=== PATIENT | male | born 1965 | race Two or more races ===

== ENCOUNTER 2020-04-25 10:27 | Inpatient (IN) | payer OTHER ==
[~2020-04-25] VITALS: Ht 180.3 cm; Wt 112.0 kg
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
[2020-04-25 15:44] VITALS: BP 134/85
[2020-04-25] MEDS ORDERED: LISI2.5T2 PO (15:55)
[2020-04-25] MEDS ORDERED: ATOR20TA PO (15:55)
[2020-04-25] MEDS ORDERED: GLIP10TA11 PO (15:55)
[2020-04-25] MEDS ORDERED: EMPA1TAB21 PO (15:55)
[2020-04-25] MEDS ORDERED: BLOOD SUGAR DIAGNOSTIC 1 EACH STRIP IN ONE (16:00)
[2020-04-25] MEDS ORDERED: MAGNESIUM HYDROXIDE 30 ML UDC PO PRN (16:30)
[2020-04-25] MEDS ORDERED: ACETAMINOPHEN ES 500 MG TABLET PO PRN (16:30)
[2020-04-25] MEDS ORDERED: MAG HYDROX/AL HYDROX/SIMETH 30 ML UDC PO PRN (16:30)
[2020-04-25] MEDS ORDERED: IBUPROFEN 200 MG TABLET PO PRN (16:30)
[2020-04-25] MEDS: LORAZEPAM 1 MG TABLET FOR AGITATION PO PRN (16:52)
--- NOTE | 2020-04-25 16:52 | NUR ---
RN NOTE- PT W ANXIETY. REQUESTING PRN. ATIVAN 1 MG GIVEN
--- NOTE | 2020-04-25 16:55 | NUR ---
RN NOTE-0 DR ROMERO ORDERED PT TO TAKE ORAL HYPOGLYCEMICS. ADMINISTERED AT THIS TIME. GLIPIZIDE 10 MG, EMPAGLIFOZIN/METFORMIN 12.5 MG/ 1000 MG
--- NOTE | 2020-04-25 17:01 | NUR ---
Dr. Rivera made aware that BS is 323, per pt. he didn't take the diabetic meds today and he ordered to start now.
--- NOTE | 2020-04-25 17:30 | NUR ---
GPS RN OPENING NOTE: RECEIVED PT. RESTING IN ROOM, A/O X4, ANXIOUS AT TIMES, COOPERATIVE, CALM, AMBULATORY STEADY GAIT, ABLE TO MAKE NEEDS KNOWN. DENIES SI/HI AT THIS TIME. WILL CONTINUE TO MONITOR FOR SAFETY AND BEHAVIOR Addendum: 04/25/20 at 2246 by OMID TARIQ RN WRONG TIME ENTRY @ 1938
[2020-04-25 20:07] VITALS: BP_SYST 138; BP_SYST 149; BP_DIAS 64; BP_DIAS 80
[2020-04-25] MEDS: ZOLPIDEM TARTRATE 10 MG TABLET PO PRN (23:08)
--- NOTE | 2020-04-25 23:10 | NUR ---
GPS RN NOTE: INSOMNIA PT. C/O UNABLE TO SLEEP. ADMINISTERED AMBIEN 10 MG PO PRN ORDERED. WILL CONTINUE TO MONITOR.
[2020-04-26] MEDS: BLOOD SUGAR DIAGNOSTIC 1 EACH STRIP IN SCH ×2 (07:40→16:36)
[2020-04-26 08:34] VITALS: BP 123/76
[2020-04-26] MEDS: LISINOPRIL 2.5 MG PO SCH (08:50)
[2020-04-26] MEDS: METFORMIN PO SCH (08:51)
[2020-04-26] MEDS: EMPAGLIFLOZIN PO SCH (08:51)
[2020-04-26] MEDS: GLIPIZIDE 10 MG PO SCH (08:51)
[2020-04-26] MEDS ORDERED: EMPAGLIFLOZIN PO SCH (09:00)
[2020-04-26] MEDS ORDERED: METFORMIN PO SCH (09:00)
[2020-04-26] MEDS ORDERED: GLIPIZIDE 10 MG PO SCH (09:00)
[2020-04-26] MEDS ORDERED: IBUPROFEN 600 MG TABLET PO PRN (09:00)
[2020-04-26] MEDS ORDERED: ATORVASTATIN 20 MG PO SCH (09:00)
[2020-04-26] MEDS: ATORVASTATIN 20 MG PO SCH (09:01)
--- NOTE | 2020-04-26 09:08 | NUR ---
RN Notes: Received pt. awake in bed, responsive to staffs, no distress and no agitation noted. BS monitored, ate 50% for breakfast, compliant on meds. Pt. went for smoking, needs attended and will continue to monitor for safety.
[2020-04-26 16:00] VITALS: BP 155/82
--- NOTE | 2020-04-26 18:13 | NUR ---
Reported to Dr. Rivera about the blood sugar. Before breakfast 155 and before dinner 169 and left a message.
--- NOTE | 2020-04-26 19:43 | NUR ---
GPS RN OPENING NOTE: RECEIVED PT. RESTING IN ROOM AND USING HIS CELL PHONE, A/O X4, NO S/S OF ACUTE DISTRESS, NO PAIN, COOPERATIVE, CALM, AMBULATORY STEADY GAIT, ABLE TO MAKE NEEDS KNOWN. DENIES SI/HI AT THIS TIME. WILL CONTINUE TO MONITOR FOR SAFETY AND BEHAVIOR.
[2020-04-26 20:32] VITALS: BP 124/78
[2020-04-27] MEDS: LORAZEPAM 1 MG TABLET FOR AGITATION PO PRN (05:38)
--- NOTE | 2020-04-27 05:39 | NUR ---
GPS RN NOTE: PT. C/O OF BEING ANXIOUS. ADMINISTERED ATIVAN 1 MG PO PRN ORDERED. WILL CONTINUE TO MONITOR.
[2020-04-27] MEDS: BLOOD SUGAR DIAGNOSTIC 1 EACH STRIP IN SCH ×2 (07:29→16:36)
[2020-04-27 08:00] VITALS: BP 118/86
[2020-04-27] MEDS: GLIPIZIDE 10 MG PO SCH (08:03)
[2020-04-27] MEDS: LISINOPRIL 2.5 MG PO SCH (08:03)
[2020-04-27] MEDS: ATORVASTATIN 20 MG PO SCH (08:04)
[2020-04-27] MEDS: METFORMIN PO SCH (08:04)
[2020-04-27] MEDS: EMPAGLIFLOZIN PO SCH (08:04)
[2020-04-27 16:00] VITALS: BP 154/82
[2020-04-27 20:00] VITALS: BP 101/69
[2020-04-27] MEDS: ZOLPIDEM TARTRATE 10 MG TABLET PO PRN (20:22)
--- NOTE | 2020-04-27 21:31 | NUR ---
GPS/RN OPENING NOTE Patient awake in bed, A/O x4 calm and cooperative, on his phone in bed. No acute distress or SOB noted. Patient denies pain, N/V/D. Patient is ambulatory with steady gait. Denies SI/HI. Will continue to monitor for safety and behavior.
[2020-04-28] MEDS: BLOOD SUGAR DIAGNOSTIC 1 EACH STRIP IN SCH ×2 (07:43→16:54)
[2020-04-28 08:00] VITALS: BP 129/94
[2020-04-28] MEDS: GLIPIZIDE 10 MG PO SCH (08:31)
[2020-04-28] MEDS: EMPAGLIFLOZIN PO SCH (08:31)
[2020-04-28] MEDS: METFORMIN PO SCH (08:31)
[2020-04-28] MEDS: LISINOPRIL 2.5 MG PO SCH (08:31)
[2020-04-28] MEDS: ATORVASTATIN 20 MG PO SCH (08:32)
--- NOTE | 2020-04-28 09:36 | NUR ---
GPS/RN Open Notes Patient resting, A/O X4, calm and cooperative with no signs of distress and no SOB. Ambulatory with steady gait. Able to make needs known. Patient denies SI/HI. Will continue to monitor for safety.
[2020-04-28 16:00] VITALS: BP 90/46
[2020-04-28 20:03] VITALS: BP 129/94
--- NOTE | 2020-04-28 20:11 | NUR ---
GPS RN NOTES: OPENING RECEIVED PT. IN BED AWAKE., A/O X4, ANXIOUS AT TIMES, COOPERATIVE, CALM, AMBULATORY STEADY GAIT, FRIENDLY, RESERVED, AND NEEDY AT TIMES. PER DAY SHIFT, PT HEARING VOICES AT TIME. PT CURRENTLY HAS NO SI OR HI AT THIS TIME. ABLE TO MAKE NEEDS KNOWN.TIME. WILL CONTINUE TO MONITOR FOR SAFETY AND BEHAVIOR Q15 MIN. ENCOURAGE PT TO EXRESS THOUGHTS AND FEELING TO STAFF.
[2020-04-28] MEDS ORDERED: OLANZAPINE 10 MG TABLET PO SCH (22:00)
[2020-04-28 22:17] VITALS: BP 124/78
[2020-04-28] MEDS: ZOLPIDEM TARTRATE 10 MG TABLET PO PRN (22:20)
--- NOTE | 2020-04-28 22:23 | NUR ---
GPS RN NOTE: INSOMNIA PT. C/O UNABLE TO SLEEP. VITALS CHECKED WNL. ADMINISTERED AMBIEN 10 MG PO PRN ORDERED. WILL CONTINUE TO MONITOR.
[2020-04-29] MEDS: BLOOD SUGAR DIAGNOSTIC 1 EACH STRIP IN SCH ×2 (06:30→17:09)
[2020-04-29 08:00] VITALS: BP 104/62
[2020-04-29] MEDS: LISINOPRIL 2.5 MG PO SCH (08:54)
[2020-04-29] MEDS: ATORVASTATIN 20 MG PO SCH (08:54)
[2020-04-29] MEDS: METFORMIN PO SCH (08:54)
[2020-04-29] MEDS: GLIPIZIDE 10 MG PO SCH (08:54)
[2020-04-29] MEDS: EMPAGLIFLOZIN PO SCH (08:54)
--- NOTE | 2020-04-29 09:00 | NUR ---
RN NOTE:Patient alert ,verbally responsive ,poor insight ,poor judgment easily irritable and anxious ,stay in his room ,preoccupied with his own thoughts ,no plan for self care.
[2020-04-29 16:00] VITALS: BP 127/87
[2020-04-29 20:02] VITALS: BP 131/61
[2020-04-29] MEDS ORDERED: OLANZAPINE 10 MG TABLET PO SCH (22:00)
[2020-04-29] MEDS: ZOLPIDEM TARTRATE 10 MG TABLET PO PRN (22:06)
--- NOTE | 2020-04-29 22:07 | NUR ---
rn gps notes patient requested for sleep medication, sukhiien prn offered, patient agreed and given as ordered, vs wnl , will continue to monitor for effectiveness.
[2020-04-30] MEDS: BLOOD SUGAR DIAGNOSTIC 1 EACH STRIP IN SCH ×2 (07:22→17:44)
[2020-04-30 08:00] VITALS: BP 104/56
[2020-04-30] MEDS: ATORVASTATIN 20 MG PO SCH (08:27)
[2020-04-30] MEDS: GLIPIZIDE 10 MG PO SCH (08:27)
[2020-04-30] MEDS: EMPAGLIFLOZIN PO SCH (08:27)
[2020-04-30] MEDS: METFORMIN PO SCH (08:27)
[2020-04-30] MEDS: LISINOPRIL 2.5 MG PO SCH (08:28)
--- NOTE | 2020-04-30 10:44 | NUR ---
[facility] OPENING NOTED: PT. IN BED AWAKE., A/O X4, ANXIOUS AT TIMES, COOPERATIVE, CALM, AMBULATORY STEADY GAIT,FRIENDLY, PT DENIES SI OR HI AT THIS TIME, FEELING DEPRESSED AND SAD. PT ADMIT TO HAVE AH DENIES VH ABLE TO MAKE NEEDS KNOWN.TIME. WILL CONTINUE TO MONITOR FOR SAFETY AND BEHAVIOR Q15 MIN. ENCOURAGE PT TO EXPRESS THOUGHTS AND FEELING TO STAFF.
[2020-04-30 16:00] VITALS: BP 127/78
[2020-04-30 18:40] VITALS: BP 127/78
[2020-04-30 20:01] VITALS: BP 120/54
--- NOTE | 2020-04-30 20:05 | NUR ---
GPS RN OPENING NOTE: RECEIVED PT. IN BED AWAKE., A/O X4, ANXIOUS AT TIMES, COOPERATIVE, CALM, AMBULATORY STEADY GAIT,FRIENDLY, PT DENIES SI OR HI AT THIS TIME, PT ADMIT TO HAVE AH DENIES VH ABLE TO MAKE NEEDS KNOWN.TIME. WILL CONTINUE TO MONITOR FOR SAFETY AND BEHAVIOR Q15 MIN.
[2020-04-30] MEDS ORDERED: OLANZAPINE 10 MG TABLET PO SCH (22:00)
[2020-04-30] MEDS: ZOLPIDEM TARTRATE 10 MG TABLET PO PRN (22:54)
--- NOTE | 2020-04-30 22:56 | NUR ---
GPS RN NOTE: INSOMNIA PT. C/O UNABLE TO SLEEP. ADMINISTERED AMBIEN 10 MG PO PRN ORDERED. WILL CONTINUE TO MONITOR.
[2020-05-01] MEDS: BLOOD SUGAR DIAGNOSTIC 1 EACH STRIP IN SCH (07:39)
--- NOTE | 2020-05-01 07:40 | NUR ---
GPS/RN-NOTES RECEIVED PATIENT SLEEPING WITH BREATHING EVEN AND NONLABORED EASILY AROUSED,NO ACUTE DISTRESS NOTED.
[2020-05-01] MEDS: METFORMIN PO SCH (08:27)
[2020-05-01] MEDS: GLIPIZIDE 10 MG PO SCH (08:27)
[2020-05-01] MEDS: ATORVASTATIN 20 MG PO SCH (08:27)
[2020-05-01] MEDS: EMPAGLIFLOZIN PO SCH (08:27)
[2020-05-01 08:30] VITALS: BP 101/54
[2020-05-01] MEDS: LISINOPRIL 2.5 MG PO SCH (08:30)
[2020-05-01 08:47] VITALS: BP 101/58
--- NOTE | 2020-05-01 08:54 | NUR ---
Dr. Rivera gave an order to D/C pt. to home and to follow up with psych and medical doctors.
--- NOTE | 2020-05-01 09:49 | NUR ---
GPS/RN-NOTES PATIENT WAS DISCHARGE HOME TODAY HAD A DISCHARGE ORDER FROM DR. ROMERO .PATIENT LEFT THE UNIT ALERT ORIENTED X4 AMBULATORY WITH STEADY GAIT. PATIENT DID NOT VERBALIZE SI/HI,DENIES VISUAL AUDITORY HALLUCINATIONS AT THE TIME OF DISCHARGE. ALL BELONGINGS WAS GIVEN BACK TO THE PATIENT.PATIENT WAS GRADUATE NURSE BY FERNANDA ( DR. ROMERO OFFICE STAFF) IN THE UNIT.OFFERED FLU VACCINE BUT REFUSED. MASK WAS GIVEN TO THE PATIENT.
[2020-05-02] MEDS ORDERED: LORAZEPAM 1 MG TABLET FOR AGITATION PO PRN (12:00)
[2020-05-02] MEDS ORDERED: INVESTIGATIONAL MED RGH-MD-24 1 CAP PO SCH (17:00)
== END 2020-05-01 09:45 | disposition home or self-care (01) | DRG 951 ==
LOC: GPS 12:18
PROVIDERS: ADMIT Psychiatry & Neurology Psychiatry; ATTEND Psychiatry & Neurology Psychiatry
DX: Z00.6 Encounter for examination for normal comparison and control in clinical research program (principal); F20.0 Paranoid schizophrenia; F17.210 Nicotine dependence, cigarettes, uncomplicated; E11.9 Type 2 diabetes mellitus without complications; Z79.84 Long term (current) use of oral hypoglycemic drugs
CPT/HCPCS: 82962-TC

== ENCOUNTER 2023-02-01 16:09 | Inpatient (IN) | payer MEDICARE, MEDICAID ==
[~2023-02-01] VITALS: Ht 180.3 cm; Wt 102.1 kg
[~2023-02-01 16:09] MED LIST: ATOR20TA PO; EMPA1TAB21 PO; GLIP10TA11 PO; LISI2.5T2 PO
[2023-02-01] MEDS ORDERED: IV NS 0.9% 1,000 ML BAG IV ONE ×2 (17:00→18:30)
[2023-02-01 17:46] LABS: BASOPHILS % (AUTO) 0.3 % (0.0-2.0); EOSINOPHILS % (AUTO) 0.2 % (0.0-6.0); HEMATOCRIT 44 % (39-51); HEMOGLOBIN 14.4 g/dL (13.5-17.5); LYMPHOCYTES # (AUTO) 0.7 K/uL (0.8-4.8); LYMPHOCYTES % (AUTO) 4.6 % (20.0-44.0); MEAN CORPUSCULAR HEMOGLOBIN 30 PG (26.0-33.0); MEAN CORPUSCULAR HGB CONC 33 g/dl (31.0-36.0); MEAN CORPUSCULAR VOLUME 91 fL (80-96); MONOCYTES # (AUTO) 0.7 K/uL (0.1-1.30); MONOCYTES % (AUTO) 4.9 % (2.0-12.0); NEUTROPHILS # (AUTO) 13.4 K/uL (1.8-8.9); PLATELET COUNT (AUTO) 249 K/uL (150-450); RED BLOOD CELL COUNT(AUTO) 4.84 MIL/uL (4.5-6.0); RED CELL DISTRIBUTION WIDTH 13.5 % (11.5-15.0); WHITE BLOOD COUNT (AUTO) 14.9 K/uL (4.3-11.0)
[2023-02-01 18:02] LABS: CARBON DIOXIDE 19 mmol/L (21-32); CHLORIDE 104 mmol/L (98-107); CREATININE 1.7 mg/dL (0.6-1.3); GLUCOSE 279 mg/dL (74-106); POTASSIUM 4.3 mmol/L (3.5-5.1); SODIUM SERUM 137 mmol/L (136-145); UREA NITROGEN, BLOOD 14 mg/dL (7-18)
[2023-02-01 18:15] LABS: ALANINE AMINOTRANSFERASE 22 U/L (12-78); ALBUMIN 3.1 g/dL (3.4-5.0); ALKALINE PHOSPHATASE 72 U/L (46-116); ASPARTATE AMINOTRANSFERASE 20 U/L (15-37); BILIRUBIN,DIRECT 0.1 mg/dL (0.0-0.2); BILIRUBIN,TOTAL 0.6 mg/dL (0.2-1.0); NT-PRO BNP 48 pg/mL (0-125); TOTAL PROTEIN, SERUM 6.5 g/dL (6.4-8.2)
[2023-02-01] MEDS ORDERED: TRAZ150T75 PO (20:23)
[2023-02-01 20:30] VITALS: BP 96/58; TEMP 98.5; O2SAT 95
[2023-02-01 20:59] VITALS: BP 96/58; TEMP 98.5; O2SAT 95
[2023-02-01] MEDS ORDERED: MAGNESIUM HYDROXIDE 30 ML UDC PO PRN (21:00)
[2023-02-01] MEDS ORDERED: ACETAMINOPHEN 325 MG TABLET PO PRN (21:00)
[2023-02-01] MEDS ORDERED: ZOLPIDEM TARTRATE 5 MG TABLET PO PRN (21:00)
[2023-02-01] MEDS ORDERED: ONDANSETRON HCL/PF 4 MG/2 ML VIAL IVP PRN (21:00)
[2023-02-01] MEDS ORDERED: Z GUARD REMEDY 4 OZ OINT TP PRN (21:00)
[2023-02-01] MEDS: ATORVASTATIN 10 MG TABLET PO SCH (21:20)
[2023-02-01] MEDS ORDERED: DEXTROSE 50%-WATER 50 ML DISP.SYRIN IV PRN (21:30)
[2023-02-01] MEDS: IV NS 0.9% 1,000 ML IV PRN (21:46)
[2023-02-01] MEDS: INSULIN REGULAR, HUMAN 100 UNIT/ML 3 ML VIAL SQ PRN (22:06)
[2023-02-01] MEDS: BLOOD SUGAR DIAGNOSTIC 1 EACH STRIP IN SCH (22:06)
[2023-02-02] VITALS (7 sets, daily range): BP systolic 86–103; BP diastolic 55–70; TEMP 97.7–98.1; O2SAT 96–100
[2023-02-02] MEDS ORDERED: ENOXAPARIN SODIUM 100 MG/ML DISP.SYRIN SQ ONE (01:30)
[2023-02-02] MEDS ORDERED: ASPIRIN 325 MG TABLET PO ONE (01:30)
[2023-02-02] MEDS: BLOOD SUGAR DIAGNOSTIC 1 EACH STRIP IN SCH ×4 (06:34→22:00)
[2023-02-02] MEDS: INSULIN REGULAR, HUMAN 100 UNIT/ML 3 ML VIAL SQ PRN ×4 (06:35→23:01)
[2023-02-02 06:48] LABS: BASOPHILS # (AUTO) 0.1 K/uL (0.0-0.2); BASOPHILS % (AUTO) 0.7 % (0.0-2.0); EOSINOPHILS # (AUTO) 0.2 K/uL (0.0-0.7); EOSINOPHILS % (AUTO) 2.4 % (0.0-6.0); HEMATOCRIT 39 % (39-51); HEMOGLOBIN 13.1 g/dL (13.5-17.5); LYMPHOCYTES # (AUTO) 1.9 K/uL (0.8-4.8); LYMPHOCYTES % (AUTO) 25.9 % (20.0-44.0); MEAN CORPUSCULAR HEMOGLOBIN 31 PG (26.0-33.0); MEAN CORPUSCULAR HGB CONC 34 g/dl (31.0-36.0); MEAN CORPUSCULAR VOLUME 90 fL (80-96); MONOCYTES # (AUTO) 0.8 K/uL (0.1-1.30); MONOCYTES % (AUTO) 10.2 % (2.0-12.0); NEUTROPHILS # (AUTO) 4.5 K/uL (1.8-8.9); NEUTROPHILS % (AUTO) 60.8 % (43.0-81.0); PLATELET COUNT (AUTO) 198 K/uL (150-450); RED BLOOD CELL COUNT(AUTO) 4.28 MIL/uL (4.5-6.0); RED CELL DISTRIBUTION WIDTH 13.5 % (11.5-15.0); WHITE BLOOD COUNT (AUTO) 7.4 K/uL (4.3-11.0)
[2023-02-02 07:05] LABS: CALCIUM, SERUM 9.1 mg/dL (8.5-10.1); CREATININE 1.1 mg/dL (0.6-1.3); MAGNESIUM 1.7 mg/dL (1.8-2.4); PHOSPHORUS 3.9 mg/dL (2.5-4.9); POTASSIUM 3.7 mmol/L (3.5-5.1)
[2023-02-02] MEDS: ASPIRIN 81 MG TAB.CHEW PO SCH (08:28)
[2023-02-02] MEDS: ENOXAPARIN SODIUM 100 MG/ML DISP.SYRIN SQ SCH ×2 (08:29→22:51)
[2023-02-02] MEDS ORDERED: OLAN15TA3 PO (08:45)
[2023-02-02] MEDS ORDERED: GABA300C PO (08:45)
[2023-02-02] MEDS: OLANZAPINE 10 MG TABLET PO SCH ×2 (09:43→16:54)
[2023-02-02] MEDS: NEOMY SULF/BACITRAC ZN/POLY 15 GM TUBE TP SCH (10:05)
[2023-02-02] MEDS ORDERED: MAGNESIUM OXIDE 400 MG TABLET PO ONE (10:30)
[2023-02-02] MEDS: IV NS 0.9% 1,000 ML IV PRN (13:44)
[2023-02-02] MEDS: TRAZODONE 50 MG TABLET PO SCH (22:50)
[2023-02-02] MEDS: ATORVASTATIN 10 MG TABLET PO SCH (22:50)
[2023-02-03] VITALS: BP 101/56; TEMP 98.2; O2SAT 99
[2023-02-03 04:00] VITALS: BP_SYST 101; BP_SYST 103; BP_DIAS 56; BP_DIAS 57; TEMP 97.9; O2SAT 100; O2SAT 99
[2023-02-03] MEDS: INSULIN REGULAR, HUMAN 100 UNIT/ML 3 ML VIAL SQ PRN ×3 (06:42→17:02)
[2023-02-03] MEDS: BLOOD SUGAR DIAGNOSTIC 1 EACH STRIP IN SCH ×4 (06:45→22:29)
[2023-02-03 07:00] VITALS: BP 106/75; TEMP 98.2; O2SAT 94
[2023-02-03 07:59] LABS: CALCIUM, SERUM 8.6 mg/dL (8.5-10.1); CREATININE 0.7 mg/dL (0.6-1.3); MAGNESIUM 1.7 mg/dL (1.8-2.4)
[2023-02-03] MEDS: OLANZAPINE 10 MG TABLET PO SCH ×2 (09:31→17:00)
[2023-02-03] MEDS: ASPIRIN 81 MG TAB.CHEW PO SCH (09:31)
[2023-02-03] MEDS: ENOXAPARIN SODIUM 100 MG/ML DISP.SYRIN SQ SCH ×2 (09:32→20:53)
[2023-02-03] MEDS: NEOMY SULF/BACITRAC ZN/POLY 15 GM TUBE TP SCH (10:03)
[2023-02-03] MEDS: IV NS 0.9% 1,000 ML IV PRN (10:27)
[2023-02-03] MEDS ORDERED: MAGNESIUM OXIDE 400 MG TABLET PO ONE (11:00)
[2023-02-03 16:00] VITALS: BP 88/49; TEMP 98.2; O2SAT 94
[2023-02-03] MEDS: ATORVASTATIN 10 MG TABLET PO SCH (21:02)
[2023-02-03] MEDS: TRAZODONE 50 MG TABLET PO SCH (21:02)
[2023-02-03 21:19] VITALS: BP 102/58; TEMP 98.3; O2SAT 97
[2023-02-04 04:13] VITALS: BP_SYST 89; TEMP 98; O2SAT 95
[2023-02-04] MEDS: IV NS 0.9% 1,000 ML IV PRN ×2 (05:06→23:33)
[2023-02-04 07:00] VITALS: BP 100/55; TEMP 97.8; O2SAT 98
[2023-02-04] MEDS: BLOOD SUGAR DIAGNOSTIC 1 EACH STRIP IN SCH ×4 (07:40→21:54)
[2023-02-04] MEDS: ASPIRIN 81 MG TAB.CHEW PO SCH (09:00)
[2023-02-04] MEDS: ENOXAPARIN SODIUM 100 MG/ML DISP.SYRIN SQ SCH (09:00)
[2023-02-04] MEDS: OLANZAPINE 10 MG TABLET PO SCH ×2 (09:58→16:31)
[2023-02-04] MEDS: NEOMY SULF/BACITRAC ZN/POLY 15 GM TUBE TP SCH (09:59)
[2023-02-04] MEDS: INSULIN REGULAR, HUMAN 100 UNIT/ML 3 ML VIAL SQ PRN ×2 (11:24→16:41)
[2023-02-04 12:00] VITALS: BP 125/77; TEMP 97.8; O2SAT 98
[2023-02-04] MEDS ORDERED: IV NS 0.9% 1,000 ML ONE (12:16)
[2023-02-04] MEDS ORDERED: IV SET PRIMARY PUMP SET 1 EA INFUS.SET MC ONE (12:16)
[2023-02-04] MEDS ORDERED: LIDOCAINE HCL/MPF 1% 30 ML VIAL IJ ONE (12:17)
[2023-02-04] MEDS ORDERED: NITROGLYCERIN IN 5 % DEXTROSE 250 ML IV ONE (12:17)
[2023-02-04] MEDS ORDERED: IODIXANOL 150 ML IV ONE (12:17)
[2023-02-04 12:39] LABS: INR 1.08 (0.91-1.10); PROTHROMBIN TIME 11.3 SECS (9.2-11.1)
[2023-02-04] MEDS ORDERED: MIDAZOLAM HCL 2 MG/2ML VIAL ONE (13:20)
[2023-02-04] MEDS ORDERED: FENTANYL PF 100MCG/2ML AMPUL ONE (13:20)
[2023-02-04 16:00] VITALS: BP 115/63; TEMP 97.6; O2SAT 98
[2023-02-04 20:51] VITALS: BP 110/59; TEMP 98.2; O2SAT 97
[2023-02-04] MEDS: ATORVASTATIN 10 MG TABLET PO SCH (21:45)
[2023-02-04] MEDS: TRAZODONE 50 MG TABLET PO SCH (21:45)
[2023-02-05 00:44] VITALS: BP 119/59; TEMP 98; O2SAT 99
[2023-02-05] MEDS: BLOOD SUGAR DIAGNOSTIC 1 EACH STRIP IN SCH ×2 (06:19→11:28)
[2023-02-05 08:00] VITALS: BP 107/75; TEMP 98.5; O2SAT 98
[2023-02-05] MEDS: OLANZAPINE 10 MG TABLET PO SCH (08:52)
[2023-02-05] MEDS: ASPIRIN 81 MG TAB.CHEW PO SCH (08:52)
[2023-02-05] MEDS: NEOMY SULF/BACITRAC ZN/POLY 15 GM TUBE TP SCH (08:56)
[2023-02-05] MEDS ORDERED: ASPI-1169 PO (10:02)
[2023-02-05] MEDS ORDERED: ATOR10TA PO (10:02)
[2023-02-05] MEDS: INSULIN REGULAR, HUMAN 100 UNIT/ML 3 ML VIAL SQ PRN (11:28)
== END 2023-02-05 12:15 | disposition left against medical advice (07) | DRG 192 ==
LOC: ER 16:15 → TELE 20:17
PROVIDERS: ADMIT Nurse Practitioner Acute Care; ATTEND Internal Medicine
PROC: 4A023N7 Measurement of Cardiac Sampling and Pressure, Left Heart, Percutaneous Approach (ICD-10-PCS; principal; 2023-02-04)
PROC: B211YZZ Fluoroscopy of Multiple Coronary Arteries using Other Contrast (ICD-10-PCS; 2023-02-04)
DX: I95.1 Orthostatic hypotension (principal); N17.0 Acute kidney failure with tubular necrosis; I21.4 Non-ST elevation (NSTEMI) myocardial infarction; E44.1 Mild protein-calorie malnutrition; E88.09 Other disorders of plasma-protein metabolism, not elsewhere classified; F25.9 Schizoaffective disorder, unspecified; E11.65 Type 2 diabetes mellitus with hyperglycemia; D72.829 Elevated white blood cell count, unspecified; E86.0 Dehydration; I25.10 Atherosclerotic heart disease of native coronary artery without angina pectoris; I10 Essential (primary) hypertension; I21.A1 Myocardial infarction type 2; Z79.84 Long term (current) use of oral hypoglycemic drugs; Z87.891 Personal history of nicotine dependence; F32.9 Major depressive disorder, single episode, unspecified; Z68.31 Body mass index [BMI] 31.0-31.9, adult
CPT/HCPCS: 36415; 70450-TC; 71045-TC; 80048-TC; 80061-TC; 80076-TC; 82962-TC; 83735-TC; 83880; 84100-TC; 84484-TC; 85025-TC; 85610-TC; 93307-TC; A4223; G0378; G0500; J1644; J1650; J1815; J2250; J3010; J3490; J7030; Q9967

== ENCOUNTER 2023-04-23 14:30 | Emergency (ER) | payer MEDICARE, OTHER ==
[~2023-04-23] VITALS: Ht 180.3 cm; Wt 95.3 kg
[~2023-04-23 14:30] MED LIST changes: +ASPI-1169 PO; +ATOR10TA PO; +GABA300C PO; +OLAN15TA3 PO; +TRAZ150T75 PO
[2023-04-23 16:15] LABS: BASOPHILS % (AUTO) 0.6 % (0.0-2.0); HEMATOCRIT 42 % (39-51); HEMOGLOBIN 13.9 g/dL (13.5-17.5); LYMPHOCYTES # (AUTO) 1.1 K/uL (0.8-4.8); LYMPHOCYTES % (AUTO) 16.5 % (20.0-44.0); MEAN CORPUSCULAR HEMOGLOBIN 30 PG (26.0-33.0); MEAN CORPUSCULAR HGB CONC 34 g/dl (31.0-36.0); MEAN CORPUSCULAR VOLUME 91 fL (80-96); MONOCYTES % (AUTO) 15.4 % (2.0-12.0); NEUTROPHILS # (AUTO) 4.6 K/uL (1.8-8.9); NEUTROPHILS % (AUTO) 67.5 % (43.0-81.0); PLATELET COUNT (AUTO) 230 K/uL (150-450); RED BLOOD CELL COUNT(AUTO) 4.58 MIL/uL (4.5-6.0); RED CELL DISTRIBUTION WIDTH 13.4 % (11.5-15.0); WHITE BLOOD COUNT (AUTO) 6.8 K/uL (4.3-11.0)
[2023-04-23 16:21] LABS: CALCIUM, SERUM 9.5 mg/dL (8.5-10.1); CARBON DIOXIDE 22 mmol/L (21-32); CHLORIDE 100 mmol/L (98-107); CREATININE 1.2 mg/dL (0.6-1.3); GLUCOSE 200 mg/dL (74-106); POTASSIUM 4.2 mmol/L (3.5-5.1); SODIUM SERUM 140 mmol/L (136-145); UREA NITROGEN, BLOOD 18 mg/dL (7-18)
[2023-04-23 16:26] LABS: ACETAMINOPHEN <10 ug/ml (10-30); ALANINE AMINOTRANSFERASE 29 U/L (12-78); ALBUMIN 4.4 g/dL (3.4-5.0); ALCOHOL, BLOOD < 3 mg/dL (0-10); ALKALINE PHOSPHATASE 77 U/L (46-116); ASPARTATE AMINOTRANSFERASE 15 U/L (15-37); BILIRUBIN,DIRECT 0.3 mg/dL (0.0-0.2); SALICYLATE 1.7 mg/dL (2.8-20.0); TOTAL PROTEIN, SERUM 8.6 g/dL (6.4-8.2)
[2023-04-23 16:28] LABS: APPEARANCE,URINE CLEAR (CLEAR); BILIRUBIN,URINE 1+ (NEGATIVE); BLOOD, URINE NEGATIVE Ery/uL (NEGATIVE); COLOR,URINE YELLOW (YELLOW); KETONES,URINE 3+ mg/dL (NEGATIVE); LEUKOCYTE ESTERASE ,URINE NEGATIVE (NEGATIVE); NITRITE, URINE NEGATIVE (NEGATIVE); PH,URINE 5.5 (5.0-8.0); PROTEIN,URINE NEGATIVE (NEGATIVE); UGLUCOSE 3+ mg/dL (NEGATIVE)
[2023-04-23 16:37] LABS: AMPHETAMINE, URINE NEGATIVE (NEGATIVE); BARBITURATE, URINE NEGATIVE (NEGATIVE); BENZODIAZEPINE, URINE NEGATIVE (NEGATIVE); CANNABINOID, URINE NEGATIVE (NEGATIVE); COCCAINE, URINE NEGATIVE (NEGATIVE); OPIATE, URINE NEGATIVE (NEGATIVE); PHENCYCLIDINE SCREEN,URINE NEGATIVE (NEGATIVE)
[2023-04-23 16:39] LABS: ADD URINE CULTURE NO; BACTERIA,URINE Few /HPF (None Seen); RBC,URINE 0-2 /HPF (0-2); SQUAMOUS EPITHELIAL CELL,UR Few /HPF (None Seen); WBC,URINE NONE SEEN /HPF (0-3)
[2023-04-23 16:40] LABS: COARSE GRANULAR CASTS,URINE Few /LPF (None Seen)
[2023-04-23 17:21] LABS: LYMPHOCYTES % (MANUAL) 17 % (16-48); MONOCYTES % (MANUAL) 18 % (0-11.0); NEUTROPHILS % (MANUAL) 65 (42-76); PLATELET ESTIMATE ADEQUATE
[2023-04-23 17:22] LABS: ANISOCYTOSIS 1+
[2023-04-23] MEDS ORDERED: OLANZAPINE 5 MG TABLET PO ONE (18:30)
[2023-04-23] MEDS ORDERED: OLANZAPINE 5 MG TABLET ONE (18:40)
[2023-04-26 08:09] VITALS: BP 127/80; TEMP 98.1; O2SAT 97
== END 2023-04-26 08:10 | disposition home or self-care (01) ==
LOC: ER 14:51
DX: U07.1 COVID-19 (principal); R45.851 Suicidal ideations; R44.0 Auditory hallucinations; I10 Essential (primary) hypertension; E78.5 Hyperlipidemia, unspecified; E11.9 Type 2 diabetes mellitus without complications; Z98.890 Other specified postprocedural states; Z79.899 Other long term (current) drug therapy; Z60.2 Problems related to living alone; Z91.018 Allergy to other foods
CPT/HCPCS: 36415; 80048-TC; 80076-TC; 81001; 85025-TC; C9803; G0480

== ENCOUNTER 2023-06-23 18:01 | Emergency (ER) | payer MEDICARE, OTHER ==
[~2023-06-23] VITALS: Ht 180.3 cm; Wt 97.5 kg
[2023-06-23 21:25] VITALS: TEMP 97.9
[2023-06-23 21:52] LABS: BASOPHILS # (AUTO) 0.1 K/uL (0.0-0.2); BASOPHILS % (AUTO) 0.7 % (0.0-2.0); EOSINOPHILS # (AUTO) 0.1 K/uL (0.0-0.7); EOSINOPHILS % (AUTO) 1.2 % (0.0-6.0); HEMATOCRIT 44 % (39-51); HEMOGLOBIN 14.6 g/dL (13.5-17.5); LYMPHOCYTES # (AUTO) 1.9 K/uL (0.8-4.8); LYMPHOCYTES % (AUTO) 21.6 % (20.0-44.0); MEAN CORPUSCULAR HEMOGLOBIN 30 PG (26.0-33.0); MEAN CORPUSCULAR HGB CONC 33 g/dl (31.0-36.0); MEAN CORPUSCULAR VOLUME 91 fL (80-96); MONOCYTES # (AUTO) 0.8 K/uL (0.1-1.30); MONOCYTES % (AUTO) 9.1 % (2.0-12.0); NEUTROPHILS # (AUTO) 5.9 K/uL (1.8-8.9); NEUTROPHILS % (AUTO) 67.4 % (43.0-81.0); PLATELET COUNT (AUTO) 246 K/uL (150-450); RED BLOOD CELL COUNT(AUTO) 4.84 MIL/uL (4.5-6.0); RED CELL DISTRIBUTION WIDTH 13.5 % (11.5-15.0); WHITE BLOOD COUNT (AUTO) 8.8 K/uL (4.3-11.0)
[2023-06-23 22:00] LABS: CARBON DIOXIDE 27 mmol/L (21-32); CHLORIDE 99 mmol/L (98-107); CREATININE 1.1 mg/dL (0.6-1.3); GLUCOSE 177 mg/dL (74-106); POTASSIUM 4.4 mmol/L (3.5-5.1); SODIUM SERUM 135 mmol/L (136-145); UREA NITROGEN, BLOOD 18 mg/dL (7-18)
[2023-06-23 22:05] LABS: ALANINE AMINOTRANSFERASE 25 U/L (12-78); ALBUMIN 3.9 g/dL (3.4-5.0); ALCOHOL, BLOOD < 3 mg/dL (0-10); ALKALINE PHOSPHATASE 75 U/L (46-116); ASPARTATE AMINOTRANSFERASE 12 U/L (15-37); BILIRUBIN,DIRECT 0.1 mg/dL (0.0-0.2); BILIRUBIN,TOTAL 0.6 mg/dL (0.2-1.0); TOTAL PROTEIN, SERUM 7.6 g/dL (6.4-8.2)
[2023-06-23 22:34] LABS: APPEARANCE,URINE CLEAR (CLEAR); BILIRUBIN,URINE NEGATIVE (NEGATIVE); BLOOD, URINE NEGATIVE Ery/uL (NEGATIVE); COLOR,URINE YELLOW (YELLOW); KETONES,URINE TRACE mg/dL (NEGATIVE); LEUKOCYTE ESTERASE ,URINE NEGATIVE (NEGATIVE); NITRITE, URINE NEGATIVE (NEGATIVE); PROTEIN,URINE NEGATIVE (NEGATIVE); UGLUCOSE 2+ mg/dL (NEGATIVE); UROBILINOGEN,URINE 0.2 EU/dL (0.2)
[2023-06-23 22:37] LABS: ACETAMINOPHEN <10 ug/ml (10-30); SALICYLATE 1.8 mg/dL (2.8-20.0)
[2023-06-23 22:39] LABS: ADD URINE CULTURE NO; BACTERIA,URINE Rare /HPF (None Seen); RBC,URINE 0-2 /HPF (0-2); SQUAMOUS EPITHELIAL CELL,UR Few /HPF (None Seen); WBC,URINE 0-2 /HPF (0-3)
[2023-06-23 22:45] LABS: AMPHETAMINE, URINE NEGATIVE (NEGATIVE); BARBITURATE, URINE NEGATIVE (NEGATIVE); BENZODIAZEPINE, URINE NEGATIVE (NEGATIVE); CANNABINOID, URINE NEGATIVE (NEGATIVE); COCCAINE, URINE NEGATIVE (NEGATIVE); OPIATE, URINE NEGATIVE (NEGATIVE); PHENCYCLIDINE SCREEN,URINE NEGATIVE (NEGATIVE)
[2023-06-23 23:05] VITALS: BP 118/76; O2SAT 100
== END 2023-06-24 02:35 ==
LOC: ER 18:08
DX: R44.0 Auditory hallucinations (principal); I10 Essential (primary) hypertension; E78.5 Hyperlipidemia, unspecified; E11.9 Type 2 diabetes mellitus without complications; Z91.018 Allergy to other foods; Z60.2 Problems related to living alone; Z20.822 Contact with and (suspected) exposure to COVID-19
CPT/HCPCS: 36415; 80048-TC; 80076-TC; 81001; 85025-TC; G0480

== ENCOUNTER 2024-03-23 08:04 | Emergency (ER) | payer MEDICARE, MEDICAID ==
[~2024-03-23] VITALS: Ht 180.3 cm; Wt 99.8 kg
[2024-03-23 08:37] VITALS: TEMP 98.6
[2024-03-23 09:00] LABS: BASOPHILS # (AUTO) 0.1 K/uL (0.0-0.2); BASOPHILS % (AUTO) 1.2 % (0.0-2.0); EOSINOPHILS # (AUTO) 0.1 K/uL (0.0-0.7); EOSINOPHILS % (AUTO) 1.9 % (0.0-6.0); HEMATOCRIT 39 % (39-51); HEMOGLOBIN 13.5 g/dL (13.5-17.5); LYMPHOCYTES # (AUTO) 1.1 K/uL (0.8-4.8); LYMPHOCYTES % (AUTO) 16.2 % (20.0-44.0); MEAN CORPUSCULAR HEMOGLOBIN 31 PG (26.0-33.0); MEAN CORPUSCULAR HGB CONC 34 g/dl (31.0-36.0); MEAN CORPUSCULAR VOLUME 90 fL (80-96); MONOCYTES # (AUTO) 0.7 K/uL (0.1-1.30); MONOCYTES % (AUTO) 10.5 % (2.0-12.0); NEUTROPHILS # (AUTO) 4.9 K/uL (1.8-8.9); NEUTROPHILS % (AUTO) 70.2 % (43.0-81.0); PLATELET COUNT (AUTO) 274 K/uL (150-450); RED BLOOD CELL COUNT(AUTO) 4.37 MIL/uL (4.5-6.0); RED CELL DISTRIBUTION WIDTH 12.9 % (11.5-15.0)
[2024-03-23 09:04] LABS: APPEARANCE,URINE CLEAR (CLEAR); BILIRUBIN,URINE NEGATIVE (NEGATIVE); BLOOD, URINE NEGATIVE Ery/uL (NEGATIVE); COLOR,URINE YELLOW (YELLOW); KETONES,URINE 1+ mg/dL (NEGATIVE); LEUKOCYTE ESTERASE ,URINE NEGATIVE (NEGATIVE); NITRITE, URINE NEGATIVE (NEGATIVE); PH,URINE 5.5 (5.0-8.0); PROTEIN,URINE NEGATIVE (NEGATIVE); UGLUCOSE 3+ mg/dL (NEGATIVE); UROBILINOGEN,URINE 0.2 EU/dL (0.2)
[2024-03-23 09:15] LABS: ADD URINE CULTURE NO; BACTERIA,URINE Rare /HPF (None Seen); RBC,URINE 0-2 /HPF (0-2); SQUAMOUS EPITHELIAL CELL,UR 0-2 /HPF (None Seen); WBC,URINE 0-2 /HPF (0-3)
[2024-03-23 09:17] LABS: AMPHETAMINE, URINE NEGATIVE (NEGATIVE); BARBITURATE, URINE NEGATIVE (NEGATIVE); BENZODIAZEPINE, URINE NEGATIVE (NEGATIVE); CANNABINOID, URINE NEGATIVE (NEGATIVE); COCCAINE, URINE NEGATIVE (NEGATIVE); OPIATE, URINE NEGATIVE (NEGATIVE); PHENCYCLIDINE SCREEN,URINE NEGATIVE (NEGATIVE)
[2024-03-23 09:18] LABS: ALANINE AMINOTRANSFERASE 22 U/L (12-78); ALBUMIN 3.9 g/dL (3.4-5.0); ALKALINE PHOSPHATASE 106 U/L (46-116); ASPARTATE AMINOTRANSFERASE 11 U/L (15-37); BILIRUBIN,DIRECT 0.2 mg/dL (0.0-0.2); BILIRUBIN,TOTAL 0.7 mg/dL (0.2-1.0); CALCIUM, SERUM 9.1 mg/dL (8.5-10.1); CARBON DIOXIDE 27 mmol/L (21-32); CHLORIDE 106 mmol/L (98-107); CREATININE 0.9 mg/dL (0.6-1.3); GLUCOSE 186 mg/dL (74-106); SODIUM SERUM 141 mmol/L (136-145); TOTAL PROTEIN, SERUM 7.6 g/dL (6.4-8.2); UREA NITROGEN, BLOOD 19 mg/dL (7-18)
[2024-03-23 09:19] LABS: ACETAMINOPHEN <10 ug/ml (10-30); ALCOHOL, BLOOD < 3 mg/dL (0-10); SALICYLATE 1.1 mg/dL (2.8-20.0)
[2024-03-23 11:30] VITALS: BP 125/70; O2SAT 98
== END 2024-03-23 11:30 ==
LOC: ER 08:13
DX: R45.851 Suicidal ideations (principal); R44.0 Auditory hallucinations; E11.9 Type 2 diabetes mellitus without complications; E78.5 Hyperlipidemia, unspecified; I10 Essential (primary) hypertension; Z79.82 Long term (current) use of aspirin; Z79.84 Long term (current) use of oral hypoglycemic drugs; Z79.899 Other long term (current) drug therapy; Z60.2 Problems related to living alone; Z20.822 Contact with and (suspected) exposure to COVID-19
CPT/HCPCS: 36415; 80048-TC; 80076-TC; 81001; 85025-TC; G0480

== ENCOUNTER 2024-04-07 02:59 | Emergency (ER) | payer MEDICARE, MEDICAID ==
[~2024-04-07] VITALS: Ht 175.3 cm; Wt 83.9 kg
[2024-04-07 03:58] LABS: BASOPHILS # (AUTO) 0.1 K/uL (0.0-0.2); EOSINOPHILS # (AUTO) 0.2 K/uL (0.0-0.7); EOSINOPHILS % (AUTO) 2.4 % (0.0-6.0); HEMATOCRIT 43 % (39-51); HEMOGLOBIN 14.6 g/dL (13.5-17.5); LYMPHOCYTES # (AUTO) 2.2 K/uL (0.8-4.8); MEAN CORPUSCULAR HEMOGLOBIN 30 PG (26.0-33.0); MEAN CORPUSCULAR HGB CONC 34 g/dl (31.0-36.0); MEAN CORPUSCULAR VOLUME 90 fL (80-96); MONOCYTES # (AUTO) 0.6 K/uL (0.1-1.30); MONOCYTES % (AUTO) 7.6 % (2.0-12.0); PLATELET COUNT (AUTO) 220 K/uL (150-450); RED BLOOD CELL COUNT(AUTO) 4.81 MIL/uL (4.5-6.0); RED CELL DISTRIBUTION WIDTH 12.7 % (11.5-15.0)
[2024-04-07 04:04] LABS: APPEARANCE,URINE CLEAR (CLEAR); BILIRUBIN,URINE NEGATIVE (NEGATIVE); BLOOD, URINE NEGATIVE Ery/uL (NEGATIVE); COLOR,URINE YELLOW (YELLOW); KETONES,URINE NEGATIVE (NEGATIVE); LEUKOCYTE ESTERASE ,URINE NEGATIVE (NEGATIVE); NITRITE, URINE NEGATIVE (NEGATIVE); PROTEIN,URINE NEGATIVE (NEGATIVE); UGLUCOSE 1+ mg/dL (NEGATIVE); UROBILINOGEN,URINE 0.2 EU/dL (0.2)
[2024-04-07 04:13] LABS: CARBON DIOXIDE 28 mmol/L (21-32); CHLORIDE 103 mmol/L (98-107); CREATININE 0.9 mg/dL (0.6-1.3); GLUCOSE 223 mg/dL (74-106); POTASSIUM 4.2 mmol/L (3.5-5.1); SODIUM SERUM 140 mmol/L (136-145); UREA NITROGEN, BLOOD 15 mg/dL (7-18)
[2024-04-07 04:22] LABS: ACETAMINOPHEN < 10 ug/ml (10-30); ALANINE AMINOTRANSFERASE 15 U/L (12-78); ALBUMIN 3.3 g/dL (3.4-5.0); ALCOHOL, BLOOD < 3 mg/dL (0-10); ALKALINE PHOSPHATASE 80 U/L (46-116); ASPARTATE AMINOTRANSFERASE 8 U/L (15-37); BILIRUBIN,DIRECT 0.1 mg/dL (0.0-0.2); BILIRUBIN,TOTAL 0.4 mg/dL (0.2-1.0); TOTAL PROTEIN, SERUM 6.6 g/dL (6.4-8.2)
[2024-04-07 04:23] LABS: SALICYLATE 1.3 mg/dL (2.8-20.0)
[2024-04-07 04:23] LABS: AMPHETAMINE, URINE NEGATIVE (NEGATIVE); BARBITURATE, URINE NEGATIVE (NEGATIVE); BENZODIAZEPINE, URINE NEGATIVE (NEGATIVE); CANNABINOID, URINE NEGATIVE (NEGATIVE); COCCAINE, URINE NEGATIVE (NEGATIVE); OPIATE, URINE NEGATIVE (NEGATIVE); PHENCYCLIDINE SCREEN,URINE NEGATIVE (NEGATIVE)
[2024-04-07 10:04] VITALS: BP 120/78; TEMP 97.8; O2SAT 99
== END 2024-04-07 10:05 ==
LOC: ER 03:07
DX: F32.A Depression, unspecified (principal); E11.9 Type 2 diabetes mellitus without complications; I10 Essential (primary) hypertension; Z88.2 Allergy status to sulfonamides; Z98.890 Other specified postprocedural states; Z91.018 Allergy to other foods; Z79.82 Long term (current) use of aspirin; Z20.822 Contact with and (suspected) exposure to COVID-19
CPT/HCPCS: 36415; 80048-TC; 80076-TC; 85025-TC; 98960; G0480

== ENCOUNTER 2024-06-15 01:42 | Emergency (ER) | payer MEDICARE, OTHER ==
[~2024-06-15] VITALS: Ht 180.3 cm; Wt 99.8 kg
[2024-06-15 02:05] VITALS: BP 133/87; TEMP 97.9; O2SAT 98
[2024-06-15 02:32] LABS: APPEARANCE,URINE CLEAR (CLEAR); BILIRUBIN,URINE NEGATIVE (NEGATIVE); BLOOD, URINE NEGATIVE Ery/uL (NEGATIVE); COLOR,URINE YELLOW (YELLOW); KETONES,URINE NEGATIVE (NEGATIVE); LEUKOCYTE ESTERASE ,URINE NEGATIVE (NEGATIVE); NITRITE, URINE NEGATIVE (NEGATIVE); PROTEIN,URINE NEGATIVE (NEGATIVE); UGLUCOSE 3+ mg/dL (NEGATIVE)
[2024-06-15 02:37] LABS: BASOPHILS # (AUTO) 0.1 K/uL (0.0-0.2); BASOPHILS % (AUTO) 1.4 % (0.0-2.0); EOSINOPHILS # (AUTO) 0.1 K/uL (0.0-0.7); EOSINOPHILS % (AUTO) 1.5 % (0.0-6.0); HEMATOCRIT 41 % (39-51); LYMPHOCYTES # (AUTO) 1.1 K/uL (0.8-4.8); LYMPHOCYTES % (AUTO) 17.7 % (20.0-44.0); MEAN CORPUSCULAR HEMOGLOBIN 31 PG (26.0-33.0); MEAN CORPUSCULAR HGB CONC 34 g/dl (31.0-36.0); MEAN CORPUSCULAR VOLUME 89 fL (80-96); MONOCYTES # (AUTO) 0.6 K/uL (0.1-1.30); MONOCYTES % (AUTO) 9.2 % (2.0-12.0); NEUTROPHILS # (AUTO) 4.3 K/uL (1.8-8.9); NEUTROPHILS % (AUTO) 70.2 % (43.0-81.0); PLATELET COUNT (AUTO) 234 K/uL (150-450); RED BLOOD CELL COUNT(AUTO) 4.55 MIL/uL (4.5-6.0); RED CELL DISTRIBUTION WIDTH 13.1 % (11.5-15.0); WHITE BLOOD COUNT (AUTO) 6.1 K/uL (4.3-11.0)
[2024-06-15 02:45] LABS: CALCIUM, SERUM 9.3 mg/dL (8.5-10.1); CARBON DIOXIDE 30 mmol/L (21-32); CHLORIDE 104 mmol/L (98-107); CREATININE 1.1 mg/dL (0.6-1.3); GLUCOSE 127 mg/dL (74-106); SODIUM SERUM 141 mmol/L (136-145); UREA NITROGEN, BLOOD 20 mg/dL (7-18)
[2024-06-15 02:46] LABS: AMPHETAMINE, URINE NEGATIVE (NEGATIVE); BARBITURATE, URINE NEGATIVE (NEGATIVE); BENZODIAZEPINE, URINE NEGATIVE (NEGATIVE); CANNABINOID, URINE NEGATIVE (NEGATIVE); COCCAINE, URINE NEGATIVE (NEGATIVE); OPIATE, URINE NEGATIVE (NEGATIVE); PHENCYCLIDINE SCREEN,URINE NEGATIVE (NEGATIVE)
[2024-06-15 02:51] LABS: ADD URINE CULTURE NO; BACTERIA,URINE None seen /HPF (None Seen); RBC,URINE 0-2 /HPF (0-2); SQUAMOUS EPITHELIAL CELL,UR 0-2 /HPF (None Seen); WBC,URINE NONE SEEN /HPF (0-3)
[2024-06-15 02:52] LABS: ACETAMINOPHEN <10 ug/ml (10-30); ALANINE AMINOTRANSFERASE 32 U/L (12-78); ALBUMIN 3.9 g/dL (3.4-5.0); ALCOHOL, BLOOD < 3 mg/dL (0-10); ALKALINE PHOSPHATASE 82 U/L (46-116); ASPARTATE AMINOTRANSFERASE 16 U/L (15-37); BILIRUBIN,DIRECT 0.2 mg/dL (0.0-0.2); BILIRUBIN,TOTAL 0.6 mg/dL (0.2-1.0); SALICYLATE 0.3 mg/dL (2.8-20.0); TOTAL PROTEIN, SERUM 7.9 g/dL (6.4-8.2)
== END 2024-06-15 07:18 ==
LOC: ER 01:49
DX: F32.A Depression, unspecified (principal); Z79.82 Long term (current) use of aspirin; Z79.84 Long term (current) use of oral hypoglycemic drugs; Z79.899 Other long term (current) drug therapy; Z20.822 Contact with and (suspected) exposure to COVID-19
CPT/HCPCS: 36415; 80048-TC; 80076-TC; 81001; 84484-TC; 85025-TC; G0480

== ENCOUNTER 2025-01-30 16:18 | Emergency (ER) | payer MEDICARE, OTHER ==
[~2025-01-30] VITALS: Ht 180.3 cm; Wt 99.3 kg
[2025-01-30 17:58] LABS: CALCIUM, SERUM 9.3 mg/dL (8.5-10.1); CREATININE 1.0 mg/dL (0.6-1.3); SODIUM SERUM 138 mmol/L (136-145); UREA NITROGEN, BLOOD 14 mg/dL (7-18)
[2025-01-30 18:00] VITALS: BP 131/75; TEMP 98.6; O2SAT 98
[2025-01-30 18:02] LABS: PLATELET COUNT (AUTO) 263 K/uL (150-450); RED BLOOD CELL COUNT(AUTO) 4.66 MIL/uL (4.5-6.0); RED CELL DISTRIBUTION WIDTH 13.4 % (11.5-15.0); WHITE BLOOD COUNT (AUTO) 8.1 K/uL (4.3-11.0)
[2025-01-30 18:02] LABS: APPEARANCE,URINE CLEAR (CLEAR); BLOOD, URINE NEGATIVE Ery/uL (NEGATIVE); LEUKOCYTE ESTERASE ,URINE NEGATIVE (NEGATIVE); NITRITE, URINE NEGATIVE (NEGATIVE); UGLUCOSE NEGATIVE (NEGATIVE)
[2025-01-30 18:04] LABS: ALCOHOL, BLOOD < 3 mg/dL (0-10); ASPARTATE AMINOTRANSFERASE 16 U/L (15-37); TOTAL PROTEIN, SERUM 7.6 g/dL (6.4-8.2)
[2025-01-30 18:15] LABS: AMPHETAMINE, URINE NEGATIVE (NEGATIVE); BARBITURATE, URINE NEGATIVE (NEGATIVE); BENZODIAZEPINE, URINE NEGATIVE (NEGATIVE); CANNABINOID, URINE NEGATIVE (NEGATIVE); COCCAINE, URINE NEGATIVE (NEGATIVE); OPIATE, URINE NEGATIVE (NEGATIVE)
[2025-01-30 18:16] LABS: ADD URINE CULTURE NO; CALCIUM OXALATE CRYSTALS,UR Few /HPF (None Seen); SQUAMOUS EPITHELIAL CELL,UR None Seen /HPF (None Seen)
== END 2025-01-30 20:57 | disposition home or self-care (01) ==
LOC: ER 16:25
DX: R44.0 Auditory hallucinations (principal); R45.851 Suicidal ideations; Z79.82 Long term (current) use of aspirin; Z79.84 Long term (current) use of oral hypoglycemic drugs; Z79.899 Other long term (current) drug therapy; Z60.2 Problems related to living alone; Z91.018 Allergy to other foods; Z20.822 Contact with and (suspected) exposure to COVID-19
CPT/HCPCS: 36415; 80048-TC; 80076-TC; 81001; 85025-TC; G0480

== ENCOUNTER 2025-02-21 09:50 | Emergency (ER) | payer MEDICARE, OTHER ==
[~2025-02-21] VITALS: Ht 180.3 cm; Wt 99.8 kg
[2025-02-21 10:13] LABS: PLATELET COUNT (AUTO) 270 K/uL (150-450); RED BLOOD CELL COUNT(AUTO) 4.32 MIL/uL (4.5-6.0); RED CELL DISTRIBUTION WIDTH 13.0 % (11.5-15.0); WHITE BLOOD COUNT (AUTO) 7.8 K/uL (4.3-11.0)
[2025-02-21 10:24] LABS: APPEARANCE,URINE CLEAR (CLEAR); BLOOD, URINE Negative Ery/uL (NEGATIVE); LEUKOCYTE ESTERASE ,URINE Negative (NEGATIVE); UGLUCOSE 500 MG/DL mg/dL (NEGATIVE)
[2025-02-21 10:29] LABS: CALCIUM, SERUM 9.0 mg/dL (8.5-10.1); CREATININE 1.1 mg/dL (0.6-1.3); SODIUM SERUM 132 mmol/L (136-145); UREA NITROGEN, BLOOD 15 mg/dL (7-18)
[2025-02-21 10:31] LABS: NITRITE, URINE NEGATIVE (NEGATIVE)
[2025-02-21 10:42] LABS: ADD URINE CULTURE NO; SQUAMOUS EPITHELIAL CELL,UR Few /HPF (None Seen)
[2025-02-21 10:43] LABS: ASPARTATE AMINOTRANSFERASE 26 U/L (15-37); TOTAL PROTEIN, SERUM 8.1 g/dL (6.4-8.2)
[2025-02-21 10:45] LABS: AMPHETAMINE, URINE NEGATIVE (NEGATIVE); BARBITURATE, URINE NEGATIVE (NEGATIVE); BENZODIAZEPINE, URINE NEGATIVE (NEGATIVE); CANNABINOID, URINE NEGATIVE (NEGATIVE); COCCAINE, URINE NEGATIVE (NEGATIVE); OPIATE, URINE NEGATIVE (NEGATIVE)
[2025-02-21 10:53] LABS: ALCOHOL, BLOOD < 3 mg/dL (0-10)
[2025-02-21 12:30] VITALS: BP 128/77; TEMP 99.3; O2SAT 99
== END 2025-02-21 13:15 ==
LOC: ER 09:56
DX: R44.0 Auditory hallucinations (principal); Z79.82 Long term (current) use of aspirin; Z79.84 Long term (current) use of oral hypoglycemic drugs; Z79.899 Other long term (current) drug therapy; Z20.822 Contact with and (suspected) exposure to COVID-19; Z60.2 Problems related to living alone
CPT/HCPCS: 36415; 80048-TC; 80076-TC; 81001; 85025-TC; G0480

== ENCOUNTER 2025-05-14 02:08 | Inpatient (IN) | payer MEDICARE, OTHER ==
[~2025-05-14] VITALS: Ht 172.7 cm; Wt 106.6 kg
[2025-05-14 06:34] LABS: PLATELET COUNT (AUTO) 318 K/uL (150-450); RED BLOOD CELL COUNT(AUTO) 4.09 MIL/uL (4.5-6.0); RED CELL DISTRIBUTION WIDTH 12.8 % (11.5-15.0); WHITE BLOOD COUNT (AUTO) 8.7 K/uL (4.3-11.0)
[2025-05-14 06:45] LABS: CALCIUM, SERUM 8.7 mg/dL (8.5-10.1); CREATININE 1.0 mg/dL (0.6-1.3); SODIUM SERUM 135 mmol/L (136-145); UREA NITROGEN, BLOOD 8 mg/dL (7-18)
[2025-05-14 06:49] LABS: ASPARTATE AMINOTRANSFERASE 18 U/L (15-37); TOTAL PROTEIN, SERUM 7.5 g/dL (6.4-8.2)
[2025-05-14 06:50] LABS: AMPHETAMINE, URINE NEGATIVE (NEGATIVE); BARBITURATE, URINE NEGATIVE (NEGATIVE); BENZODIAZEPINE, URINE NEGATIVE (NEGATIVE); CANNABINOID, URINE NEGATIVE (NEGATIVE); COCCAINE, URINE NEGATIVE (NEGATIVE); OPIATE, URINE NEGATIVE (NEGATIVE)
[2025-05-14 06:54] LABS: ALCOHOL, BLOOD < 3 mg/dL (0-10)
[2025-05-14 06:58] LABS: APPEARANCE,URINE CLEAR (CLEAR); BLOOD, URINE NEGATIVE Ery/uL (NEGATIVE); LEUKOCYTE ESTERASE ,URINE NEGATIVE (NEGATIVE); NITRITE, URINE NEGATIVE (NEGATIVE); UGLUCOSE 3+ mg/dL (NEGATIVE)
[2025-05-14 07:09] LABS: ADD URINE CULTURE NO
[2025-05-14] MEDS ORDERED: OLANZAPINE 5 MG TABLET ONE (11:33)
[2025-05-14] MEDS: OLANZAPINE 5 MG TABLET PO ONE (11:41)
[2025-05-14] MEDS: INSULIN REGULAR, HUMAN 100 UNIT/ML 10 ML VIAL SQ ONE (11:41)
[2025-05-14] MEDS ORDERED: QUET300T2 PO (13:49)
[2025-05-14] MEDS ORDERED: METF-442 PO (13:49)
[2025-05-14] MEDS ORDERED: ASPI-1169 PO (13:49)
[2025-05-14] MEDS ORDERED: BENZ0.5T43 PO (13:49)
[2025-05-14] MEDS ORDERED: ESCI10TA PO (13:49)
[2025-05-14 14:47] VITALS: BP 144/70; TEMP 98; O2SAT 99
[2025-05-14] MEDS ORDERED: MAGNESIUM HYDROXIDE 30 ML UDC PO PRN (15:30)
[2025-05-14] MEDS ORDERED: MAG HYDROX/AL HYDROX/SIMETH 30 ML UDC PO PRN (15:30)
[2025-05-14] MEDS: BLOOD SUGAR DIAGNOSTIC 1 EACH STRIP IN ONE (15:30)
[2025-05-14] MEDS ORDERED: DEXTROSE 50%-WATER 50 ML DISP.SYRIN IV PRN (17:30)
[2025-05-14] MEDS: BLOOD SUGAR DIAGNOSTIC 1 EACH STRIP VI SCH (17:48)
[2025-05-14] MEDS: INSULIN REGULAR, HUMAN 100 UNIT/ML 3 ML VIAL SQ PRN (17:48)
[2025-05-14 20:48] VITALS: BP 125/61; TEMP 97.5; O2SAT 100
[2025-05-14] MEDS: ATORVASTATIN 10 MG TABLET PO SCH (21:17)
[2025-05-14] MEDS: ACETAMINOPHEN 325 MG TABLET PO PRN (21:35)
[2025-05-14] MEDS: *INSULIN REGULAR(HUMULIN R)HUM 100 UNIT/ML VIAL SQ PRN (21:41)
[2025-05-15 08:00] VITALS: BP 120/54; TEMP 98.2; O2SAT 99
[2025-05-15 08:21] LABS: ASPARTATE AMINOTRANSFERASE 15.0 U/L (15-37); CALCIUM, SERUM 8.7 mg/dL (8.5-10.1); CREATININE 0.8 mg/dL (0.6-1.3); SODIUM SERUM 141.0 mmol/L (136-145); TOTAL PROTEIN, SERUM 6.5 g/dL (6.4-8.2); UREA NITROGEN, BLOOD 11.0 mg/dL (7-18)
[2025-05-15 08:25] LABS: LDL 42 mg/dL (0-99)
[2025-05-15 08:43] VITALS: BP 110/80
[2025-05-15 08:46] VITALS: BP 108/80
[2025-05-15] MEDS: ASPIRIN 81 MG TAB.CHEW PO SCH (08:47)
[2025-05-15] MEDS: LISINOPRIL (5MG) 5 MG TABLET PO SCH (08:47)
[2025-05-15] MEDS ORDERED: ESCITALOPRAM OXALATE (10 MG) 10 MG TABLET PO SCH (09:00)
[2025-05-15] MEDS: INSULIN GLARGINE, 100 UNIT/ML CARTRIDGE SQ SCH (09:00)
[2025-05-15 15:52] LABS: CREATININE 1.1 mg/dL (0.6-1.3)
[2025-05-15 16:00] VITALS: BP 128/60; TEMP 98.4; O2SAT 97
[2025-05-15] MEDS: OLANZAPINE 5 MG TABLET PO SCH (17:31)
[2025-05-15] MEDS: LORAZEPAM 0.5 MG TABLET PO PRN (20:59)
[2025-05-15 21:04] VITALS: BP 126/74; TEMP 97.5; O2SAT 99
[2025-05-15] MEDS ORDERED: TRAZODONE 50 MG TABLET PO SCH (22:00)
[2025-05-16 06:41] VITALS: BP 126/74; TEMP 97.5; O2SAT 99
[2025-05-16 08:00] VITALS: BP 140/100; TEMP 98.1; O2SAT 98
[2025-05-16] MEDS ORDERED: BENZTROPINE MESYLATE (1 MG) 1 MG TABLET PO SCH (09:00)
[2025-05-16 16:00] VITALS: BP 122/72; TEMP 98.6; O2SAT 98
[2025-05-16] MEDS: OLANZAPINE 2.5 MG TABLET PO SCH (16:39)
[2025-05-16] MEDS: INSULIN GLARGINE, 100 UNIT/ML CARTRIDGE SQ SCH (17:25)
[2025-05-16 20:57] VITALS: BP 131/62; TEMP 98.7; O2SAT 100
[2025-05-16] MEDS: OLANZAPINE 5 MG TABLET PO SCH (21:14)
[2025-05-16] MEDS: GABAPENTIN 300 MG CAPSULE PO SCH (21:15)
[2025-05-17 08:00] VITALS: BP 120/60; TEMP 97.7; O2SAT 98
[2025-05-17] MEDS: INSULIN GLARGINE, 100 UNIT/ML CARTRIDGE SQ SCH (09:54)
[2025-05-17 16:00] VITALS: BP 92/65; TEMP 98.1; O2SAT 98
[2025-05-17] MEDS: OLANZAPINE 5 MG TABLET PO SCH (16:55)
[2025-05-17 20:47] VITALS: BP 110/66; TEMP 98.1; O2SAT 100
[2025-05-17] MEDS: TEMAZEPAM 7.5 MG CAPSULE PO PRN (21:43)
[2025-05-18 08:00] VITALS: BP 110/64; TEMP 97.6; O2SAT 96
[2025-05-18 09:14] VITALS: BP 103/60
[2025-05-18 16:09] VITALS: BP 105/52; TEMP 97.9; O2SAT 100
[2025-05-18 20:00] VITALS: BP 158/72; TEMP 97.9
[2025-05-18 20:58] VITALS: BP 158/72; TEMP 97.9; O2SAT 100
[2025-05-19 08:00] VITALS: BP 98/60; TEMP 97.7; O2SAT 96
[2025-05-19 09:16] VITALS: BP 92/60
[2025-05-19] MEDS: INSULIN GLARGINE, 100 UNIT/ML CARTRIDGE SQ STA (11:54)
[2025-05-19 14:29] LABS: PLATELET COUNT (AUTO) 266 K/uL (150-450); RED BLOOD CELL COUNT(AUTO) 3.82 MIL/uL (4.5-6.0); RED CELL DISTRIBUTION WIDTH 12.6 % (11.5-15.0); WHITE BLOOD COUNT (AUTO) 5.6 K/uL (4.3-11.0)
[2025-05-19 14:39] LABS: CALCIUM, SERUM 8.5 mg/dL (8.5-10.1); CREATININE 1.1 mg/dL (0.6-1.3); PHOSPHORUS 4.3 mg/dL (2.5-4.9); SODIUM SERUM 135.0 mmol/L (136-145); UREA NITROGEN, BLOOD 18.0 mg/dL (7-18)
[2025-05-19 16:00] VITALS: BP 119/83; TEMP 98.1; O2SAT 100
[2025-05-19] MEDS: INSULIN GLARGINE, 100 UNIT/ML CARTRIDGE SQ SCH (17:36)
[2025-05-19 20:00] VITALS: BP 115/73; TEMP 98.2; O2SAT 96
[2025-05-19] MEDS ORDERED: ATORVASTATIN 10 MG TABLET ONE (20:56)
[2025-05-19] MEDS ORDERED: GABAPENTIN 300 MG CAPSULE ONE (20:57)
[2025-05-19] MEDS ORDERED: OLANZAPINE 10 MG TABLET ONE (20:58)
[2025-05-20 07:45] VITALS: BP 90/45; TEMP 98.2; O2SAT 96
[2025-05-20 08:45] VITALS: BP 95/52; TEMP 98.2; O2SAT 96
[2025-05-20 09:30] VITALS: BP 129/75; TEMP 98.2; O2SAT 96
[2025-05-20 15:57] VITALS: BP 111/81; TEMP 97.9; O2SAT 96
[2025-05-20 20:24] VITALS: BP 115/83; TEMP 97.9; O2SAT 100
[2025-05-21 08:00] VITALS: BP 97/58; TEMP 98.1; O2SAT 97
[2025-05-21] MEDS: OLANZAPINE 2.5 MG TABLET PO SCH (09:31)
[2025-05-21 12:00] VITALS: BP 128/69; TEMP 98.5; O2SAT 96
[2025-05-21 16:00] VITALS: BP 130/74; TEMP 97.9; O2SAT 98
[2025-05-21] MEDS: INSULIN GLARGINE, 100 UNIT/ML CARTRIDGE SQ SCH (17:18)
[2025-05-21 20:09] VITALS: BP 144/77; TEMP 98.1; O2SAT 98
[2025-05-22 08:00] VITALS: BP 148/95; TEMP 98; O2SAT 100
[2025-05-22 09:48] VITALS: BP 148/95
[2025-05-22] MEDS ORDERED: INSULIN GLARGINE, 100 UNIT/ML CARTRIDGE SQ SCH (17:00)
[2025-05-22] MEDS ORDERED: EMPA1TAB21 PO (17:30)
[2025-05-22] MEDS ORDERED: METF-442 PO (17:30)
[2025-05-22] MEDS ORDERED: GABA300C PO (17:30)
[2025-05-22] MEDS ORDERED: BENZ0.5T43 PO (17:30)
[2025-05-22] MEDS ORDERED: ASPI-1169 PO (17:30)
[2025-05-22] MEDS ORDERED: GLIP10TA11 PO (17:30)
[2025-05-22] MEDS ORDERED: LISI2.5T2 PO (17:30)
[2025-05-22] MEDS ORDERED: ATOR20TA PO (17:30)
== END 2025-05-22 14:15 | DRG 885 ==
LOC: ER 02:15 → GPS 14:11 → GPSOV2 05-19 18:11 → GPS 05-20 13:59
PROVIDERS: ADMIT Psychiatry & Neurology Psychosomatic Medicine; ATTEND Internal Medicine
DX: F20.9 Schizophrenia, unspecified (principal); E11.65 Type 2 diabetes mellitus with hyperglycemia; F29 Unspecified psychosis not due to a substance or known physiological condition; D64.9 Anemia, unspecified; E78.5 Hyperlipidemia, unspecified; E80.6 Other disorders of bilirubin metabolism; I10 Essential (primary) hypertension; R45.851 Suicidal ideations; Z79.84 Long term (current) use of oral hypoglycemic drugs; Z79.899 Other long term (current) drug therapy
CPT/HCPCS: 36415; 80048-TC; 80053-TC; 80061-TC; 80076-TC; 81001; 82565-TC; 82962-TC; 83735-TC; 84100-TC; 85025-TC; 87081-TC; 97110-TC; 97116-TC; 97530-TC; G0480; J1815